=== PATIENT | male | born 1970 | race Caucasian/White ===

== ENCOUNTER 2020-06-24 20:05 | Outpatient (REF) | payer OTHER, SELFPAY ==
[2020-06-28 17:40] LABS: Patient Race White; SARS-CoV-2 RNA Undetected (Undetected); SARS-CoV-2 Specimen Source Nasal
== END 2020-06-24 20:25 ==
LOC: NCHCN 20:05
PROVIDERS: PCP Nurse Practitioner Family; Visit Provider Nurse Practitioner Family
DX: R50.9 Fever, unspecified (principal)
CPT/HCPCS: U0003

== ENCOUNTER 2023-05-04 14:51 | Outpatient (CLI) | payer BC, SELFPAY ==
--- NOTE | 2023-05-04 10:30 | DI.RAD_ITS ---
Exam(s) XR KNEE LT 3V AP,LAT,TYRONE EXAM: XR KNEE LT 3V AP,LAT,TYRONE CLINICAL HISTORY: evaluate pathology M25.562 LEFT KNEE PAIN. TECHNIQUE: 2D digital imaging was performed. Three views. COMPARISON: No exams were available for comparison FINDINGS: BONES: No acute fracture is present. No bony destructive lesion is seen. JOINTS: The knee is normally aligned. No joint effusion is seen. Joint spaces are maintained. No significant degenerative changes. SOFT TISSUE: Normal. IMPRESSION: Normal radiographs of the left knee. DATA REPOSITORY: RADIATION DOSE DELIVERED:
== END 2023-05-04 15:11 ==
PROVIDERS: PCP Nurse Practitioner Family; Visit Provider Nurse Practitioner Family
DX: M25.562 Pain in left knee (principal)
CPT/HCPCS: 73562